=== PATIENT | female | born 1960 | race Asian ===

== ENCOUNTER 2019-09-11 13:50 | Emergency (ER) | payer OTHER, MEDICAID ==
[~2019-09-11] VITALS: Ht 157.5 cm; Wt 49.9 kg
[2019-09-11 14:05] VITALS: Ht 157.5 cm; Wt 49.9 kg
[2019-09-11 14:38] VITALS: BP 132/76
== END 2019-09-11 14:38 | disposition home or self-care (01) ==
LOC: ED 13:50
DX: S82.001A Unspecified fracture of right patella, initial encounter for closed fracture (principal); X58.XXXA Exposure to other specified factors, initial encounter; Y93.89 Activity, other specified; Y92.89 Other specified places as the place of occurrence of the external cause; Y99.8 Other external cause status